=== PATIENT | female | born 1955 | race Two or more races ===

== ENCOUNTER 2018-03-25 21:21 | Emergency (ER) | payer MEDICARE, OTHER ==
[~2018-03-25] VITALS: Ht 149.9 cm; Wt 63.5 kg
[2018-03-25] MEDS: MAGNESIUM SULFATE 1GM/100ML 100 ML IV SCH ×2 (00:24→23:55)
[2018-03-25] MEDS ORDERED: NITROGLYCERIN 0.4 MG SL TAB SL ONE (21:45)
[2018-03-25] MEDS ORDERED: ASPirin-EC 325mg tab PO ONE (21:45)
[2018-03-25] MEDS ORDERED: cefTRIAXone 1GM/10ml IVPUSH 10 ML IV ONE (22:00)
[2018-03-25] MEDS ORDERED: IPRATROPIUM BROM 0.5 MG/2.5ML INH SOL NEB ONE (22:00)
[2018-03-25] MEDS ORDERED: ALBUTEROL SULF 2.5 MG/0.5ML(0.5%) NEB SOLN NEB ONE (22:00)
[2018-03-25] MEDS ORDERED: methylPREDNISolone SOD SUCC 125 MG/2 ML VL IV ONE (22:00)
[2018-03-25 22:02] LABS: Basophils # (auto) 0 uL; Basophils % (auto) 0.6 % (0.0-2.0); Eosinophils # (auto) 0.6 uL; Eosinophils % (auto) 7.4 % (0.0-7.0); Hematocrit 40.1 % (36.0-46.0); Hemoglobin 13.2 g/dL (12.2-16.2); Lymphocytes # (auto) 2.7 uL; Lymphocytes % (auto) 33.9 % (10.0-50.0); Mean Corpuscular Hemoglobin 31.1 pg (28.0-32.0); Mean Corpuscular Hgb Conc. 32.8 g/dL (32.0-36.0); Mean Corpuscular Volume 94.6 fL (80.0-100.0); Monocytes # (auto) 0.5 uL; Monocytes % (auto) 5.9 % (0.0-12.0); Neutrophils # (auto) 4.2 uL; Neutrophils % (auto) 52.2 % (37.0-80.0); Platelet Count (auto) 290 10^3/uL (140-450); Red Blood Cells 4.24 10^6/uL (4.0-5.20); Red Cell Distribution Width 13.5 % (11.8-14.3)
[2018-03-25 22:12] VITALS: BP 116/60
[2018-03-25 22:13] LABS: INR 0.91 (0.9-1.15); Partial Thromboplastin Time 26.1 sec (23.78-33.04); Prothrombin Time 9.8 sec (9.27-12.13)
[2018-03-25 22:18] LABS: Alanine Aminotransferase 27 U/L (13-56); Albumin 3.5 g/dL (3.4-5.0); Alkaline Phosphatase 125 U/L (45-117); Anion Gap 9 (5-15); Aspartate Aminotransferase 19 U/L (15-37); BUN/Creatinine Ratio 11.7; Bilirubin, Total 0.1 mg/dL (0.2-1.0); Blood Urea Nitrogen 11 mg/dL (7-18); Calcium 8.8 mg/dL (8.5-10.1); Carbon Dioxide 27 mmol/L (21-32); Chloride 105 mmol/L (98-107); GFR African American 77 mL/min; GFR Non-African American 64 mL/min; Glucose 134 mg/dL (74-106); Magnesium 2.4 mg/dL (1.6-2.6); Potassium 3.5 mmol/L (3.5-5.1); Sodium 141 mmol/L (136-145)
[2018-03-26] MEDS ORDERED: ALBUTEROL SULF 2.5 MG/0.5ML(0.5%) NEB SOLN NEB ONE
== END 2018-03-26 01:30 | disposition home or self-care (01) ==
LOC: EDBD 21:21 → ER 21:21
DX: J45.909 Unspecified asthma, uncomplicated (principal); J06.9 Acute upper respiratory infection, unspecified; F17.210 Nicotine dependence, cigarettes, uncomplicated
CPT/HCPCS: 36415; 71045; 80053; 83735; 83880; 84484; 85025; 85610; 85730; 93005; 94640; 96365; 96366; 96375; 99285; J2930; J3475

== ENCOUNTER 2020-05-08 12:26 | Inpatient (IN) | payer MEDICARE, MEDICAID ==
[~2020-05-08] VITALS: Ht 167.6 cm; Wt 65.5 kg
[2020-05-08] MEDS ORDERED: SODIUM CHLORIDE 0.9% 1,000 ML IVB ONE (13:47)
[2020-05-08] MEDS ORDERED: DOXYCYCLINE 100MG/250ML 250 ML IV ONE (14:00)
[2020-05-08] MEDS ORDERED: ZINC SULFATE 220mg CAP or TAB PO ONE (14:00)
[2020-05-08] MEDS ORDERED: ASCORBIC ACID 500 MG TAB PO ONE (14:00)
[2020-05-08] MEDS: ACETAMINOPHEN 500 MG TAB PO ONE (14:15)
[2020-05-08 14:35] LABS: Basophils # (auto) 0 10 ^3/uL (0-0.2); Basophils % (auto) 0.5 % (0.0-2.0); Eosinophils # (auto) 0 10 ^3/uL (0-0.8); Eosinophils % (auto) 0.6 % (0.0-7.0); Hematocrit 41.2 % (36.0-46.0); Hemoglobin 13.8 g/dL (12.2-16.2); Lymphocytes % (auto) 19.8 % (10.0-50.0); Mean Corpuscular Hemoglobin 31.5 pg (28.0-32.0); Mean Corpuscular Hgb Conc. 33.4 g/dL (32.0-36.0); Mean Corpuscular Volume 94.5 fL (80.0-100.0); Monocytes # (auto) 0.4 10 ^3/uL (0-1.3); Monocytes % (auto) 8.6 % (0.0-12.0); Neutrophils # (auto) 3.5 10 ^3/uL (1.6-8.6); Neutrophils % (auto) 70.5 % (37.0-80.0); Nucleated Red Blood Cells % 0.1 %; Platelet Count (auto) 218 10^3/uL (140-450); Red Blood Cells 4.36 10^6/uL (4.0-5.20); Red Cell Distribution Width 13.7 % (11.8-14.3)
[2020-05-08 14:52] LABS: INR 0.93 (0.9-1.15); Partial Thromboplastin Time 27.4 sec (23.0-31.2)
[2020-05-08 14:54] LABS: Urine Bacteria FEW /hpf (None Seen); Urine Blood Negative /uL (Negative); Urine Mucus FEW (None Seen); Urine Specific Gravity 1.015 (1.001-1.035); Urine WBC 5 /hpf (0 - 5)
[2020-05-08 15:16] LABS: Albumin 2.9 g/dL (3.4-5.0); Anion Gap 6 (5-15); BUN/Creatinine Ratio 8.8; Blood Urea Nitrogen 6 mg/dL (7-18); Calcium 8.1 mg/dL (8.5-10.1); Carbon Dioxide 27 mmol/L (21-32); Chloride 108 mmol/L (98-107); GFR African American 111 mL/min; GFR Non-African American 92 mL/min; Glucose 96 mg/dL (74-106); Potassium 3.4 mmol/L (3.5-5.1); Sodium 141 mmol/L (136-145)
[2020-05-08 15:30] LABS: Alanine Aminotransferase 47 U/L (13-56); Alkaline Phosphatase 117 U/L (45-117); Aspartate Aminotransferase 63 U/L (15-37); Bilirubin, Total 0.3 mg/dL (0.2-1.0); Total Protein 6.9 g/dL (6.4-8.2)
[2020-05-08] MEDS ORDERED: MORPHINE SULF INJ 2 MG/ML SYRINGE 1ML IV PRN ×3 (16:15→16:45)
[2020-05-08] MEDS ORDERED: NITROGLYCERIN 0.4 MG SL TAB SL PRN ×2 (16:15→16:45)
[2020-05-08] MEDS ORDERED: SODIUM CHLORIDE 0.9% 1,000 ML IV SCH (16:41)
[2020-05-08] MEDS ORDERED: ALUM & MAG HYDROX-SIMETH LIQ(MAALOX) 30 ML PO PRN (16:45)
[2020-05-08] MEDS ORDERED: ACETAMINOPHEN 500 MG TAB PO PRN (16:45)
[2020-05-08] MEDS ORDERED: ONDANSETRON HCL 4 MG/2 ML VIAL IV PRN (16:45)
[2020-05-08] MEDS ORDERED: ACETAMINOPHEN 325 MG TAB PO PRN (16:45)
[2020-05-08] MEDS ORDERED: FAMOTIDINE (10MG/ML) 2ML VL IV ONE (17:00)
[2020-05-08] MEDS ORDERED: POTASSIUM CHL 20 Meq TABLET PO ONE (17:00)
[2020-05-08] MEDS ORDERED: FUROSEMIDE 20 MG/2 ML VIAL IV ONE (17:00)
[2020-05-08] MEDS: FUROSEMIDE 20 MG/2 ML VIAL IV SCH (17:37)
--- NOTE | 2020-05-08 17:40 | NUR ---
patient arrived to [facility], patient alert and oriented x4, ambulatory. Patient uses 2L NC at this time, although while off of it patient saturates at 92%. Patient with even and unlabored respirations. patient oriented to room and unit. patient given call light and patient verbalized understanding of plan of care.
[2020-05-08 17:56] LABS: Cholesterol 163 mg/dL (< 200)
[2020-05-08 17:58] LABS: HDL Cholesterol 93 mg/dL (40-59); LDL Cholesterol 55 mg/dL (< 100); Triglycerides 159 mg/dL (< 150)
[2020-05-08 18:08] LABS: CRP High Sensitivity 5.34 mg/dL (< 0.3)
[2020-05-08 18:47] LABS: Alcohol, Urine < 3.0 mg/dL (0-10); Amphetamine Screen, Urine POSITIVE (NEGATIVE); Barbiturate Scree,Urine NEGATIVE (NEGATIVE); Benzodiazephine Screen, Urine NEGATIVE (NEGATIVE); Cannabinoid Screen, Urine NEGATIVE (NEGATIVE); Cocaine Screen, Urine NEGATIVE (NEGATIVE); Opiate Scree,Urine NEGATIVE (NEGATIVE); Phencyclidine Screen, Urine NEGATIVE (NEGATIVE)
--- NOTE | 2020-05-08 19:30 | NUR ---
Opening Shift Note Assumed care of patient, awake and alert x4. Patient denies pain or shortness of breath at this time. No sign/symptoms of distress noted at this time. Instructed on plan of care and encouraged patient to call for assistance, patient verbalized understanding. Bed is locked in lowest position, side rails x 2 are up, call light is within reach, and bed alarm is on.
[2020-05-08] MEDS: DOXYCYCLINE 100MG/250ML 250 ML IV SCH (20:59)
--- NOTE | 2020-05-08 21:07 | NUR ---
Oxygen Saturation Patient's oxygen saturation was noted at 85% on 2L/min NC. Oxygen titrated up to 6L/min NC, oxygen saturation increased and sustained at 91%. Patient denies shortness of breath at this time. No sign/symptoms of distress noted or verbalized at this time. Patient is currently on 6L/min NC, SPO2: 91% laying in bed with even and unlabored respirations. No sign/symptoms of distress noted at this time.
[2020-05-08] MEDS: HYDROcodone-ACET 5/325MG TAB PO PRN (21:10)
--- NOTE | 2020-05-08 22:25 | NUR ---
IV Insertion IV access obtained, via clean sterile technique by inserting 22 gauge catheter at right forearm after 1 attempt. IV secured properly. No trauma to site. Patient tolerated well.
[2020-05-08 22:29] VITALS: BP 110/65
--- NOTE | 2020-05-08 22:30 | NUR ---
IV Removal IV to left AC DC'd due to leaking. IV DC'd with clean sterile technique, catheter fully intact. Pressure dressing applied to site. Patient tolerated well.
[2020-05-08] MEDS: BUDESONIDE (INHALATION) 180 MCG IH IN SCH (23:18)
[2020-05-08] MEDS: ALBUTEROL SULF HFA 90MCG INH 200DOSE IN SCH (23:18)
--- NOTE | 2020-05-08 23:30 | NUR ---
Temperature Temperature is 99.9. Cooling measures initiated. Patient denies chills at this time.
[2020-05-09] MEDS: LORazepam 0.5 MG TAB PO PRN ×2 (00:25→15:48)
--- NOTE | 2020-05-09 00:30 | NUR ---
Temperature Reassessment Temperature is 98.1. Patient denies chills at this time.
[2020-05-09 02:45] VITALS: BP 110/65
[2020-05-09] MEDS: FUROSEMIDE 20 MG/2 ML VIAL IV SCH ×2 (06:04→17:33)
[2020-05-09] MEDS: HYDROcodone-ACET 5/325MG TAB PO PRN ×2 (06:23→20:18)
[2020-05-09 06:28] LABS: Basophils # (auto) 0 10 ^3/uL (0-0.2); Basophils % (auto) 1.2 % (0.0-2.0); Eosinophils # (auto) 0 10 ^3/uL (0-0.8); Eosinophils % (auto) 0.5 % (0.0-7.0); Hematocrit 40.4 % (36.0-46.0); Hemoglobin 13.3 g/dL (12.2-16.2); Lymphocytes # (auto) 1.1 10 ^3/uL (0.4-5.4); Lymphocytes % (auto) 29.9 % (10.0-50.0); Mean Corpuscular Hemoglobin 31.4 pg (28.0-32.0); Mean Corpuscular Volume 95.2 fL (80.0-100.0); Monocytes # (auto) 0.4 10 ^3/uL (0-1.3); Monocytes % (auto) 10.7 % (0.0-12.0); Neutrophils # (auto) 2.2 10 ^3/uL (1.6-8.6); Neutrophils % (auto) 57.7 % (37.0-80.0); Nucleated Red Blood Cells % 0.1 %; Platelet Count (auto) 197 10^3/uL (140-450); Red Blood Cells 4.24 10^6/uL (4.0-5.20); Red Cell Distribution Width 13.3 % (11.8-14.3); White Blood Cell 3.8 10^3/uL (4.4-10.8)
[2020-05-09 06:43] LABS: Chloride 108 mmol/L (98-107); Potassium 4.1 mmol/L (3.5-5.1); Sodium 138 mmol/L (136-145)
[2020-05-09 07:03] LABS: Alanine Aminotransferase 56 U/L (13-56); Albumin 2.7 g/dL (3.4-5.0); Alkaline Phosphatase 142 U/L (45-117); Anion Gap 3 (5-15); Aspartate Aminotransferase 73 U/L (15-37); BUN/Creatinine Ratio 8.8; Bilirubin, Total 0.5 mg/dL (0.2-1.0); Blood Urea Nitrogen 6 mg/dL (7-18); CRP High Sensitivity 6.27 mg/dL (< 0.3); Carbon Dioxide 27 mmol/L (21-32); GFR African American 111 mL/min; GFR Non-African American 92 mL/min; Glucose 100 mg/dL (74-106); Lactate Dehydrogenase 310 U/L (84-246); Phosphorus 2.3 mg/dL (2.5-4.90); Total Protein 6.5 g/dL (6.4-8.2)
[2020-05-09] MEDS: ALBUTEROL SULF HFA 90MCG INH 200DOSE IN SCH ×3 (07:03→22:14)
[2020-05-09] MEDS: BUDESONIDE (INHALATION) 180 MCG IH IN SCH ×2 (07:03→22:14)
--- NOTE | 2020-05-09 08:00 | NUR ---
Instructed patient to lay "prone", discussed with patient that laying on her stomach is helpful in helping the lungs oxygenate, patient verbalized understanding, patient instructed on how to use incentive spirometer, patient verbalized understanding of instructions.
[2020-05-09 09:00] VITALS: BP 110/67
[2020-05-09] MEDS: DOXYCYCLINE 100MG/250ML 250 ML IV SCH (09:32)
[2020-05-09] MEDS: FAMOTIDINE (10MG/ML) 2ML VL IV SCH (09:32)
[2020-05-09] MEDS: ZINC SULFATE 220mg CAP or TAB PO SCH (09:33)
[2020-05-09] MEDS: POTASSIUM CHL 20 Meq TABLET PO SCH (09:33)
[2020-05-09] MEDS: ENOXAPARIN SOD 40 MG/0.4 ML SYRINGE SC SCH (09:33)
[2020-05-09] MEDS: ASCORBIC ACID 1,000 MG TAB PO SCH (09:33)
[2020-05-09] MEDS: CHOLECALCIFEROL (VITD3) 2,000 UNIT CAP PO SCH (09:33)
[2020-05-09] MEDS ORDERED: DexAMETHasone SOD PHOS 10MG/1ML VIAL INJ IV SCH (10:00)
[2020-05-09] MEDS ORDERED: cefTRIAXone 1GM/50ML D5W 50 ML IV ONE (10:00)
[2020-05-09] MEDS ORDERED: levoFLOXacin 750MG 150 ML IV ONE (10:15)
--- NOTE | 2020-05-09 10:15 | NUR ---
paged Dr soria regarding decadron on back order, per pharmacy there is none in building.
--- NOTE | 2020-05-09 10:32 | NUR ---
Per Dr Butt change decardon IV to Po same dose.
[2020-05-09] MEDS: DexAMETHasone 4 MG TAB PO SCH (11:05)
[2020-05-09 12:40] VITALS: BP 99/58
--- NOTE | 2020-05-09 15:05 | NUR ---
instructed patient to lay on abdomen, as much as possible to help with oxygenation, patient also reminded to use incentive spirometer at least 10 times an hour as tolerated.
--- NOTE | 2020-05-09 15:45 | NUR ---
Patient complained of feeling anxious, patient states "she can't close her eyes they just keep opening", at this time patient is on the cell phones talking to someone, patient requested anxiety medicine, I told patient to also turn off her lights, and turn off her phone so she could rest her mind, that the light in the phone can also keep her awake. Patient verbalized understanding, will give patient anxiety medication as well per her request.
[2020-05-09 16:57] VITALS: BP 99/59
[2020-05-09 18:04] VITALS: BP 112/78
[2020-05-09] MEDS ORDERED: cefTRIAXone 1GM/50ML D5W 50 ML IV SCH (21:00)
[2020-05-09 22:00] VITALS: BP 121/76
--- NOTE | 2020-05-09 22:15 | NUR ---
RT NOTE PT WAS SEEN BY RT FOR MDI TX. PT TOLERATES ALBUTEROL WELL VIA SPACER. PT RINSED MOUTH POST PULMICORT INHALER. PT STATES SHE THINKS SHE HAS A FEVER. WILL LET RN KNOW. CONT ORDERED Addendum: 05/09/20 at 2216 by Henna Luis RT Amended: Links added.
[2020-05-10] MEDS: HYDROcodone-ACET 5/325MG TAB PO PRN ×2 (03:55→12:27)
[2020-05-10 05:48] VITALS: BP 107/68
[2020-05-10] MEDS: FUROSEMIDE 20 MG/2 ML VIAL IV SCH ×2 (06:22→18:08)
[2020-05-10] MEDS: ALBUTEROL SULF HFA 90MCG INH 200DOSE IN SCH ×3 (07:19→22:15)
[2020-05-10] MEDS: BUDESONIDE (INHALATION) 180 MCG IH IN SCH ×2 (07:19→22:15)
[2020-05-10 09:00] VITALS: BP 93/57
[2020-05-10] MEDS: POTASSIUM CHL 20 Meq TABLET PO SCH (09:22)
[2020-05-10] MEDS: ENOXAPARIN SOD 40 MG/0.4 ML SYRINGE SC SCH (09:22)
[2020-05-10] MEDS: ZINC SULFATE 220mg CAP or TAB PO SCH (09:22)
[2020-05-10] MEDS: FAMOTIDINE (10MG/ML) 2ML VL IV SCH (09:22)
[2020-05-10] MEDS: levoFLOXacin 750MG 150 ML IV SCH (11:56)
[2020-05-10] MEDS: CHOLECALCIFEROL (VITD3) 2,000 UNIT CAP PO SCH (11:56)
[2020-05-10] MEDS: ASCORBIC ACID 1,000 MG TAB PO SCH (12:26)
[2020-05-10] MEDS: DexAMETHasone 4 MG TAB PO SCH (12:27)
[2020-05-10 12:54] VITALS: BP 110/72
[2020-05-10 17:00] VITALS: BP 99/62
--- NOTE | 2020-05-10 18:57 | NUR ---
ENDORSED CARE TO NIGHT RN.
--- NOTE | 2020-05-10 19:20 | NUR ---
Opening Shift Note Received report from taco [employer]ner [id number].Assumed care of patient, awake and alert. No S/S of distress/SOB or pain. Instructed on POC and to call for assist PRN, will continue to monitor for changes Q1hr and PRN. bed in low position and call light within reach.
[2020-05-10 22:00] VITALS: BP 104/36
[2020-05-11] MEDS: LORazepam 0.5 MG TAB PO PRN (00:24)
[2020-05-11] MEDS: HYDROcodone-ACET 5/325MG TAB PO PRN (03:39)
--- NOTE | 2020-05-11 03:39 | NUR ---
pain patient reports pain 5/10 to her back. patient medicated per md order
--- NOTE | 2020-05-11 04:39 | NUR ---
pain 0/10 pain
[2020-05-11 05:00] VITALS: BP 98/56
[2020-05-11] MEDS: FUROSEMIDE 20 MG/2 ML VIAL IV SCH ×2 (05:29→18:00)
[2020-05-11] MEDS: BUDESONIDE (INHALATION) 180 MCG IH IN SCH (06:56)
[2020-05-11] MEDS: ALBUTEROL SULF HFA 90MCG INH 200DOSE IN SCH ×2 (06:56→14:20)
--- NOTE | 2020-05-11 07:16 | NUR ---
endorsed care to dayshift rn patient denies sob distress or pain. iv is intact and patent. fall precautions in place.
--- NOTE | 2020-05-11 08:00 | NUR ---
Opening Shift Note Assumed care of patient, awake and alert x4. Patient denies pain or shortness of breath at this time. No sign/symptoms of distress noted at this time. Patient slept well.Instructed on plan of care and encouraged patient to call for assistance, patient verbalized understanding. Bed is locked in lowest position, side rails x 2 are up, call light is within reach, and bed alarm is on.
[2020-05-11 09:00] VITALS: BP 101/54
[2020-05-11] MEDS: DexAMETHasone 4 MG TAB PO SCH (09:56)
[2020-05-11] MEDS: FAMOTIDINE (10MG/ML) 2ML VL IV SCH (09:56)
[2020-05-11] MEDS: POTASSIUM CHL 20 Meq TABLET PO SCH (09:57)
[2020-05-11] MEDS: ASCORBIC ACID 1,000 MG TAB PO SCH (09:57)
[2020-05-11] MEDS: ENOXAPARIN SOD 40 MG/0.4 ML SYRINGE SC SCH (09:58)
[2020-05-11] MEDS: CHOLECALCIFEROL (VITD3) 2,000 UNIT CAP PO SCH (09:59)
[2020-05-11] MEDS: levoFLOXacin 750MG 150 ML IV SCH (09:59)
[2020-05-11] MEDS: ZINC SULFATE 220mg CAP or TAB PO SCH (10:00)
[2020-05-11 13:00] VITALS: BP 116/63
[2020-05-11] MEDS ORDERED: CHOL1CAP47 PO (13:17)
[2020-05-11] MEDS ORDERED: ALBUAER3 IN (13:17)
[2020-05-11] MEDS ORDERED: ASCO10003 PO (13:17)
[2020-05-11] MEDS ORDERED: LEVO750T8 PO (13:31)
[2020-05-11] MEDS ORDERED: DEX4T PO (13:32)
[2020-05-11] MEDS ORDERED: PANT40TA2 PO (13:33)
--- NOTE | 2020-05-11 15:50 | NUR ---
ss consult Per ss consult home 02 2l/min continuously for 2 weeks and then to be reassessed by PCP. Sweta portillo. order has been sent to [facility]. Waiting on reply back now. Addendum: 05/11/20 at 1551 by Lisette Frederick Amended: Links added.
[2020-05-11 17:00] VITALS: BP 115/64
--- NOTE | 2020-05-11 17:02 | NUR ---
re-assessment Per Marko at [facility] oxygen will be delivered to [facility] by 530pm and concentrator to home. Serge FINK has been notified. Addendum: 05/11/20 at 1704 by Lisette Frederick SS Amended: Links added.
--- NOTE | 2020-05-11 17:30 | NUR ---
OXYGEN TANK DELIVERED TO HOSPITAL AND NOW AT BEDSIDE WITH PATIENT, EDUCATED PAITENT ON USE AND SAFETY.
--- NOTE | 2020-05-11 17:30 | NUR ---
MEDICATIONS PICKED UP FROM PHARMACY AND LEFT BEDSIDE WITH HIRAM
--- NOTE | 2020-05-11 19:06 | NUR ---
DISCHARGE COMPLETED, EDUCATION PROVIDED AND SIGNED BY PATIENT. IV D/C TIP INTACT, PATIENT TOLERATED WELL, PRESSURE DRESSING APPLIED. TELE REMOVED AND CLEANED AND RETURNED TO ICU.PATIENTS DAUGHTER WILL BE HERE BETWEEN 8-830PM.
--- NOTE | 2020-05-11 19:09 | NUR ---
ENDORSED CARE TO NIGHT RN
--- NOTE | 2020-05-11 19:20 | NUR ---
Opening Shift Note Assumed care of patient, awake and alert. No S/S of distress/SOB or pain. Patient has medications at bedside. patient instructed on how to use oxygen patient verbalized understanding. Instructed on POC and to call for assist PRN, will continue to monitor for changes Q1hr and PRN. bed in low position and call light within reach per patient daughter will be here at 0800pm -0830pm. Per patient oxygen delivered at home as well.
[2020-05-11 20:00] VITALS: BP 120/63
[2020-05-11 20:13] VITALS: BP 115/64
--- NOTE | 2020-05-11 20:59 | NUR ---
patient discharge taken down with evs and security. patient daughter picking patient up. patient belongings with patient. patient verbalized understanding on how to use oxygen and understanding of discharge paperwork and medications prescribed. patient oxygen concentrator delivered to home. patient denies sob distress or pain upon discharge.
== END 2020-05-11 20:59 | disposition home or self-care (01) | DRG 720 ==
LOC: EDBD 12:26 → ER 12:26 → TELE 12:27 → TELE-EAST 17:25 → TELE-E-ADS 23:31
PROVIDERS: ADMIT Hospitalist; ATTEND Internal Medicine Nephrology
DX: A41.89 Other specified sepsis (principal); U07.1 COVID-19; J12.89 Other viral pneumonia; J96.21 Acute and chronic respiratory failure with hypoxia; R65.20 Severe sepsis without septic shock; N39.0 Urinary tract infection, site not specified; I11.0 Hypertensive heart disease with heart failure; E87.6 Hypokalemia; J44.0 Chronic obstructive pulmonary disease with (acute) lower respiratory infection; J44.1 Chronic obstructive pulmonary disease with (acute) exacerbation; E43 Unspecified severe protein-calorie malnutrition; F17.200 Nicotine dependence, unspecified, uncomplicated; I50.9 Heart failure, unspecified; J15.9 Unspecified bacterial pneumonia; R74.0 Nonspecific elevation of levels of transaminase and lactic acid dehydrogenase [LDH]; R73.9 Hyperglycemia, unspecified; Z82.61 Family history of arthritis; Z88.2 Allergy status to sulfonamides; Z88.8 Allergy status to other drugs, medicaments and biological substances; Z88.0 Allergy status to penicillin
CPT/HCPCS: 36415; 71045; 80053; 80061; 80307; 81001; 82728; 83036; 83605; 83615; 83735; 83880; 84100; 84443; 84484; 85025; 85379; 85610; 85652; 85730; 86141; 87040; 87070; 87086; 87804; 87880; 93005; 94640; 96365; G0378; J1956; J2405; J3490

== ENCOUNTER 2022-06-12 15:01 | Emergency (ER) | payer MEDICARE, MEDICAID ==
[~2022-06-12] VITALS: Ht 149.9 cm; Wt 150.0 kg
[~2022-06-12 15:01] MED LIST: ALBUAER3 IN; ASCO10003 PO; CHOL1CAP47 PO; DEX4T PO; LEVO750T8 PO; PANT40TA2 PO
[2022-06-12 17:15] LABS: Basophils # (auto) 0.1 10 ^3/uL (0-0.2); Basophils % (auto) 1.5 % (0.0-2.0); Eosinophils # (auto) 0.9 10 ^3/uL (0-0.8); Eosinophils % (auto) 14.1 % (0.0-7.0); Hemoglobin 12.9 g/dL (12.2-16.2); Lymphocytes # (auto) 1.3 10 ^3/uL (0.4-5.4); Lymphocytes % (auto) 20.8 % (10.0-50.0); Mean Corpuscular Volume 93.9 fL (80.0-100.0); Monocytes # (auto) 0.6 10 ^3/uL (0-1.3); Monocytes % (auto) 9.4 % (0.0-12.0); Neutrophils # (auto) 3.3 10 ^3/uL (1.6-8.6); Neutrophils % (auto) 54.2 % (37.0-80.0); Nucleated Red Blood Cells % 0.1 %; Red Blood Cells 4.15 10^6/uL (4.0-5.20); Red Cell Distribution Width 13.8 % (11.8-14.3)
[2022-06-12 17:36] LABS: Calcium 8.4 mg/dL (8.5-10.1); Potassium 3.2 mmol/L (3.5-5.1)
[2022-06-12 17:40] LABS: BUN/Creatinine Ratio 11.3; Bilirubin, Total 0.2 mg/dL (0.2-1.0); Total Protein 6.6 g/dL (6.4-8.2)
[2022-06-12] MEDS ORDERED: HYDROcodone-ACET 10/325MG TAB PO ONE (20:15)
[2022-06-12 22:00] VITALS: BP 112/52
[2022-06-12] MEDS ORDERED: POTASSIUM CHL 20 Meq TABLET PO ONE (22:00)
== END 2022-06-12 22:53 | disposition home or self-care (01) ==
LOC: EDBD 15:01 → ER 15:01
DX: R07.89 Other chest pain (principal); Z53.29 Procedure and treatment not carried out because of patient's decision for other reasons; Z20.822 Contact with and (suspected) exposure to COVID-19
CPT/HCPCS: 36415; 71045; 80053; 84484; 85025; 93005

== ENCOUNTER 2022-07-29 05:28 | Inpatient (IN) | payer MEDICARE, MEDICAID ==
[~2022-07-29] VITALS: Ht 149.9 cm; Wt 74.8 kg
[2022-07-29] MEDS ORDERED: ALBUTEROL SULF 2.5 MG/0.5ML(0.5%) NEB SOLN NEB ONE ×2 (07:00→12:00)
[2022-07-29] MEDS ORDERED: SODIUM CHLORIDE 0.9% 1,000 ML IV ONE (07:00)
[2022-07-29] MEDS ORDERED: methylPREDNISolone SOD SUCC 125 MG/2 ML VL IV ONE (07:00)
[2022-07-29] MEDS ORDERED: IPRATROPIUM BROM 0.5 MG/2.5ML INH SOL NEB ONE ×2 (07:00→12:00)
[2022-07-29 07:38] LABS: Hematocrit 39.5 % (36.0-46.0); Mean Corpuscular Hemoglobin 30.9 pg (28.0-32.0); Mean Corpuscular Hgb Conc. 32.9 g/dL (32.0-36.0); Mean Corpuscular Volume 93.9 fL (80.0-100.0); White Blood Cell 6.4 10^3/uL (4.4-10.8)
[2022-07-29 07:42] LABS: Band Neutrophils % (manual) 0; Basophils % (manual) 0 (0.0-2.0); Blast Cells 0; Metamyelocytes % 0; Myelocytes % 0; Promyelocytes % 0; Reactive Lymphocytes 0
[2022-07-29 07:50] LABS: Albumin 3.3 g/dL (3.4-5.0); BUN/Creatinine Ratio 16.2; Calcium 8.8 mg/dL (8.5-10.1); Potassium 3.8 mmol/L (3.5-5.1)
[2022-07-29 07:53] LABS: Bilirubin, Total 0.2 mg/dL (0.2-1.0); Total Protein 6.4 g/dL (6.4-8.2)
[2022-07-29 08:09] LABS: Lymphocytes % (manual) 23 (10.0-50.0); Monocytes % (manual) 5 (0-12)
[2022-07-29 08:10] LABS: Eosinophils % (manual) 27 (0-7)
[2022-07-29] MEDS ORDERED: cefTRIAXone 1GM/50ML D5W 50 ML IV ONE (12:00)
[2022-07-29] MEDS ORDERED: NITROGLYCERIN 0.4 MG SL TAB SL PRN (14:15)
[2022-07-29] MEDS ORDERED: MORPHINE SULFATE INJ 2 MG/ml SYRG IV PRN (14:15)
[2022-07-29] MEDS ORDERED: ACETAMINOPHEN 325 MG TAB PO PRN ×2 (14:15→15:30)
[2022-07-29] MEDS ORDERED: ONDANSETRON HCL 4 MG/2 ML VIAL IV PRN (14:15)
[2022-07-29] MEDS ORDERED: PANTOPRAZOLE 40 MG/10 ML VIAL INJ IV ONE (14:15)
[2022-07-29] MEDS ORDERED: DOCUSATE SOD 100 MG CAP PO PRN (15:30)
[2022-07-29 15:59] LABS: Cholesterol 188 mg/dL (< 200); HDL Cholesterol 86 mg/dL (40-59); LDL Cholesterol 86 mg/dL (< 100); Triglycerides 154 mg/dL (< 150)
[2022-07-29] MEDS: HYDROcodone-ACET 5/325MG TAB PO PRN (16:11)
[2022-07-29 16:30] VITALS: BP 121/65
[2022-07-29] MEDS: SODIUM CHLORIDE 0.9% 1,000 ML IV ONE ×2 (19:39→19:46)
[2022-07-29] MEDS: ALBUTEROL SULF 2.5 MG/0.5ML(0.5%) NEB SOLN NEB SCH (19:42)
[2022-07-29] MEDS: IPRATROPIUM BROM 0.5 MG/2.5ML INH SOL NEB SCH (19:42)
[2022-07-29] MEDS: methylPREDNISolone SOD SUCC 125 MG/2 ML VL IV SCH (22:04)
[2022-07-30] MEDS: IPRATROPIUM BROM 0.5 MG/2.5ML INH SOL NEB SCH ×6 (00:11→23:32)
[2022-07-30] MEDS: ALBUTEROL SULF 2.5 MG/0.5ML(0.5%) NEB SOLN NEB SCH ×6 (00:11→23:32)
[2022-07-30] MEDS: HYDROcodone-ACET 5/325MG TAB PO PRN ×2 (02:11→17:46)
[2022-07-30] MEDS: ONDANSETRON HCL 4 MG/2 ML VIAL IV PRN (05:00)
[2022-07-30] MEDS: MORPHINE SULFATE INJ 2 MG/ml SYRG IV PRN ×2 (05:01→22:44)
[2022-07-30 05:55] LABS: Basophils # (auto) 0 10 ^3/uL (0-0.2); Basophils % (auto) 0.4 % (0.0-2.0); Eosinophils # (auto) 0 10 ^3/uL (0-0.8); Hematocrit 37.7 % (36.0-46.0); Hemoglobin 12.3 g/dL (12.2-16.2); Lymphocytes # (auto) 0.7 10 ^3/uL (0.4-5.4); Lymphocytes % (auto) 5.5 % (10.0-50.0); Mean Corpuscular Hemoglobin 30.5 pg (28.0-32.0); Mean Corpuscular Hgb Conc. 32.6 g/dL (32.0-36.0); Mean Corpuscular Volume 93.6 fL (80.0-100.0); Monocytes # (auto) 0.2 10 ^3/uL (0-1.3); Monocytes % (auto) 1.7 % (0.0-12.0); Neutrophils # (auto) 11.5 10 ^3/uL (1.6-8.6); Neutrophils % (auto) 92.4 % (37.0-80.0); Red Blood Cells 4.03 10^6/uL (4.0-5.20); Red Cell Distribution Width 13.1 % (11.8-14.3); White Blood Cell 12.5 10^3/uL (4.4-10.8)
[2022-07-30 06:01] LABS: Calcium 8.3 mg/dL (8.5-10.1); Potassium 3.9 mmol/L (3.5-5.1)
[2022-07-30 06:09] LABS: Bilirubin, Total 0.2 mg/dL (0.2-1.0); Total Protein 6.5 g/dL (6.4-8.2)
[2022-07-30 06:28] LABS: BUN/Creatinine Ratio 17.7
[2022-07-30 07:45] LABS: Urine Bacteria NONE SEEN /hpf (None Seen); Urine Blood Negative /uL (Negative); Urine Mucus FEW (None Seen); Urine Specific Gravity 1.032 (1.001-1.035); Urine WBC <1 /hpf (0 - 5)
[2022-07-30] MEDS: ENOXAPARIN SOD 40 MG/0.4 ML SYRINGE SC SCH (09:34)
[2022-07-30] MEDS: PANTOPRAZOLE 40 MG/10 ML VIAL INJ IV SCH (09:34)
[2022-07-30] MEDS: methylPREDNISolone SOD SUCC 125 MG/2 ML VL IV SCH ×2 (09:34→22:22)
[2022-07-30] MEDS: cefTRIAXone 1GM/50ML D5W 50 ML IV SCH (09:34)
[2022-07-30] MEDS ORDERED: ENOXAPARIN SOD 40 MG/0.4 ML SYRINGE SC SCH (10:00)
[2022-07-30] MEDS ORDERED: SODIUM CHLORIDE 0.9% 1,000 ML IV ONE (13:45)
[2022-07-30] MEDS ORDERED: MAGNESIUM SULFATE 1GM/100ML 100 ML IV ONE (14:00)
[2022-07-30 17:00] VITALS: BP 125/69
[2022-07-30 20:00] VITALS: BP 116/60
[2022-07-30 21:44] VITALS: BP 116/60
[2022-07-30] MEDS: MONTELUKAST SODIUM 10 MG TAB PO SCH (22:22)
[2022-07-30] MEDS: BUDESONIDE (INHALATION) 0.5 MG/2 ML NEB NEB SCH (23:32)
[2022-07-31] MEDS: ALBUTEROL SULF 2.5 MG/0.5ML(0.5%) NEB SOLN NEB SCH ×6 (03:18→22:21)
[2022-07-31] MEDS: IPRATROPIUM BROM 0.5 MG/2.5ML INH SOL NEB SCH ×6 (03:19→22:21)
[2022-07-31] MEDS: MORPHINE SULFATE INJ 2 MG/ml SYRG IV PRN ×2 (03:45→23:33)
[2022-07-31 05:00] VITALS: BP 129/65
[2022-07-31 08:30] VITALS: BP 121/62
[2022-07-31 09:00] VITALS: BP 121/62
[2022-07-31] MEDS: cefTRIAXone 1GM/50ML D5W 50 ML IV SCH (09:30)
[2022-07-31] MEDS: PANTOPRAZOLE 40 MG/10 ML VIAL INJ IV SCH (09:30)
[2022-07-31] MEDS: HYDROcodone-ACET 5/325MG TAB PO PRN ×2 (09:31→20:39)
[2022-07-31] MEDS: LORATADINE 10 MG TAB PO SCH (09:31)
[2022-07-31] MEDS: ENOXAPARIN SOD 40 MG/0.4 ML SYRINGE SC SCH (09:31)
[2022-07-31] MEDS: methylPREDNISolone SOD SUCC 125 MG/2 ML VL IV SCH ×2 (09:33→21:36)
[2022-07-31] MEDS: ONDANSETRON HCL 4 MG/2 ML VIAL IV PRN (09:33)
[2022-07-31] MEDS ORDERED: FUROSEMIDE 20 MG/2 ML VIAL IV ONE (10:00)
[2022-07-31] MEDS: BUDESONIDE (INHALATION) 0.5 MG/2 ML NEB NEB SCH ×2 (10:16→19:33)
[2022-07-31 12:00] VITALS: BP 123/60
[2022-07-31] MEDS ORDERED: guaiFENesin-DM 100/10mg/5ml SYR PO PRN (12:45)
[2022-07-31 17:00] VITALS: BP 105/44
[2022-07-31] MEDS: MONTELUKAST SODIUM 10 MG TAB PO SCH (21:37)
[2022-07-31 21:57] VITALS: BP 111/61
[2022-08-01] MEDS: IPRATROPIUM BROM 0.5 MG/2.5ML INH SOL NEB SCH ×6 (02:31→22:22)
[2022-08-01] MEDS: ALBUTEROL SULF 2.5 MG/0.5ML(0.5%) NEB SOLN NEB SCH ×6 (02:31→22:22)
[2022-08-01 05:00] VITALS: BP 129/64
[2022-08-01 07:13] LABS: Basophils # (auto) 0 10 ^3/uL (0-0.2); Basophils % (auto) 0.1 % (0.0-2.0); Eosinophils # (auto) 0 10 ^3/uL (0-0.8); Hematocrit 38.2 % (36.0-46.0); Hemoglobin 12.6 g/dL (12.2-16.2); Lymphocytes # (auto) 0.7 10 ^3/uL (0.4-5.4); Lymphocytes % (auto) 6.1 % (10.0-50.0); Mean Corpuscular Hemoglobin 31.1 pg (28.0-32.0); Mean Corpuscular Volume 94.2 fL (80.0-100.0); Monocytes # (auto) 0.3 10 ^3/uL (0-1.3); Monocytes % (auto) 2.4 % (0.0-12.0); Neutrophils # (auto) 9.9 10 ^3/uL (1.6-8.6); Neutrophils % (auto) 91.4 % (37.0-80.0); Red Blood Cells 4.05 10^6/uL (4.0-5.20); Red Cell Distribution Width 13.4 % (11.8-14.3); White Blood Cell 10.8 10^3/uL (4.4-10.8)
[2022-08-01 07:14] LABS: Calcium 8.4 mg/dL (8.5-10.1); Potassium 3.9 mmol/L (3.5-5.1)
[2022-08-01 08:00] VITALS: BP 138/80
[2022-08-01] MEDS: cefTRIAXone 1GM/50ML D5W 50 ML IV SCH (08:26)
[2022-08-01] MEDS: BUDESONIDE (INHALATION) 0.5 MG/2 ML NEB NEB SCH ×2 (09:22→19:04)
[2022-08-01] MEDS: methylPREDNISolone SOD SUCC 125 MG/2 ML VL IV SCH ×3 (10:22→23:32)
[2022-08-01] MEDS: LORATADINE 10 MG TAB PO SCH (10:22)
[2022-08-01] MEDS: ENOXAPARIN SOD 40 MG/0.4 ML SYRINGE SC SCH (10:22)
[2022-08-01 12:00] VITALS: BP_SYST 138; BP_SYST 139; BP_DIAS 71; BP_DIAS 93
[2022-08-01 16:00] VITALS: BP 134/78
[2022-08-01] MEDS: HYDROcodone-ACET 5/325MG TAB PO PRN (17:43)
[2022-08-01] MEDS: MONTELUKAST SODIUM 10 MG TAB PO SCH (21:40)
[2022-08-01 22:00] VITALS: BP 117/50
[2022-08-02] MEDS: ALBUTEROL SULF 2.5 MG/0.5ML(0.5%) NEB SOLN NEB SCH ×5 (01:33→22:40)
[2022-08-02] MEDS: IPRATROPIUM BROM 0.5 MG/2.5ML INH SOL NEB SCH ×5 (01:33→22:40)
[2022-08-02 05:00] VITALS: BP 140/74
[2022-08-02] MEDS: MORPHINE SULFATE INJ 2 MG/ml SYRG IV PRN (05:10)
[2022-08-02] MEDS: methylPREDNISolone SOD SUCC 125 MG/2 ML VL IV SCH ×3 (06:44→21:58)
[2022-08-02] MEDS: BUDESONIDE (INHALATION) 0.5 MG/2 ML NEB NEB SCH ×2 (07:21→22:40)
[2022-08-02 08:45] VITALS: BP 116/68
[2022-08-02] MEDS: ENOXAPARIN SOD 40 MG/0.4 ML SYRINGE SC SCH (09:33)
[2022-08-02] MEDS: LORATADINE 10 MG TAB PO SCH (09:33)
[2022-08-02] MEDS: cefTRIAXone 1GM/50ML D5W 50 ML IV SCH (09:33)
[2022-08-02 12:55] VITALS: BP 132/66
[2022-08-02 16:41] VITALS: BP 143/77
[2022-08-02] MEDS: HYDROcodone-ACET 5/325MG TAB PO PRN (20:51)
[2022-08-02] MEDS: MONTELUKAST SODIUM 10 MG TAB PO SCH (21:58)
[2022-08-02 22:00] VITALS: BP 149/71
[2022-08-03] MEDS: IPRATROPIUM BROM 0.5 MG/2.5ML INH SOL NEB SCH ×6 (02:21→22:22)
[2022-08-03] MEDS: ALBUTEROL SULF 2.5 MG/0.5ML(0.5%) NEB SOLN NEB SCH ×6 (02:21→22:22)
[2022-08-03] MEDS: MORPHINE SULFATE INJ 2 MG/ml SYRG IV PRN (03:08)
[2022-08-03 05:00] VITALS: BP 146/69
[2022-08-03] MEDS: methylPREDNISolone SOD SUCC 125 MG/2 ML VL IV SCH ×3 (05:36→21:45)
[2022-08-03] MEDS: BUDESONIDE (INHALATION) 0.5 MG/2 ML NEB NEB SCH ×2 (07:32→22:22)
[2022-08-03 08:00] VITALS: BP 114/58
[2022-08-03 09:00] VITALS: BP 137/72
[2022-08-03] MEDS: cefTRIAXone 1GM/50ML D5W 50 ML IV SCH (09:19)
[2022-08-03] MEDS: LORATADINE 10 MG TAB PO SCH (09:19)
[2022-08-03] MEDS: ENOXAPARIN SOD 40 MG/0.4 ML SYRINGE SC SCH (09:20)
[2022-08-03] MEDS ORDERED: AZITTAB PO (09:45)
[2022-08-03] MEDS ORDERED: PRED20TA2 PO (09:45)
[2022-08-03] MEDS ORDERED: MONT5CHW23 PO (09:45)
[2022-08-03] MEDS ORDERED: BUDE0.5S IN (09:45)
[2022-08-03 13:00] VITALS: BP 141/74
[2022-08-03 17:00] VITALS: BP 142/71
[2022-08-03] MEDS: HYDROcodone-ACET 5/325MG TAB PO PRN (19:51)
[2022-08-03] MEDS: MONTELUKAST SODIUM 10 MG TAB PO SCH (21:46)
[2022-08-03 22:00] VITALS: BP 117/63
[2022-08-04] MEDS: ALBUTEROL SULF 2.5 MG/0.5ML(0.5%) NEB SOLN NEB SCH ×3 (02:26→10:36)
[2022-08-04] MEDS: IPRATROPIUM BROM 0.5 MG/2.5ML INH SOL NEB SCH ×3 (02:26→10:37)
[2022-08-04 05:00] VITALS: BP 128/76
[2022-08-04] MEDS: methylPREDNISolone SOD SUCC 125 MG/2 ML VL IV SCH (05:46)
[2022-08-04] MEDS: BUDESONIDE (INHALATION) 0.5 MG/2 ML NEB NEB SCH (06:46)
[2022-08-04] MEDS: cefTRIAXone 1GM/50ML D5W 50 ML IV SCH (08:54)
[2022-08-04 09:00] VITALS: BP 132/61
[2022-08-04] MEDS: LORATADINE 10 MG TAB PO SCH (10:09)
[2022-08-04] MEDS: ENOXAPARIN SOD 40 MG/0.4 ML SYRINGE SC SCH (10:10)
[2022-08-04 10:52] VITALS: BP 132/61
[2022-08-04] MEDS: HYDROcodone-ACET 5/325MG TAB PO PRN (10:59)
[2022-08-04 11:27] VITALS: BP 132/61
[2022-08-04 11:35] VITALS: BP 132/61
[2022-08-04 13:13] VITALS: BP 124/67
== END 2022-08-04 13:47 | disposition home or self-care (01) | DRG 140 ==
LOC: EDUNIT# 05:28 → ER 05:28 → EDBD 05:28 → TELE 14:10 → TELE-EAST 07-30 15:40 → EAST 07-31 23:52
PROVIDERS: ADMIT Nurse Practitioner Family; ATTEND Nurse Practitioner Acute Care
DX: J44.1 Chronic obstructive pulmonary disease with (acute) exacerbation (principal); J96.01 Acute respiratory failure with hypoxia; E44.1 Mild protein-calorie malnutrition; R73.9 Hyperglycemia, unspecified; E66.01 Morbid (severe) obesity due to excess calories; G89.29 Other chronic pain; Z20.822 Contact with and (suspected) exposure to COVID-19; I10 Essential (primary) hypertension; J98.11 Atelectasis; Z79.51 Long term (current) use of inhaled steroids; Z86.16 Personal history of COVID-19; Z68.32 Body mass index [BMI] 32.0-32.9, adult; Z88.2 Allergy status to sulfonamides; Z88.8 Allergy status to other drugs, medicaments and biological substances
CPT/HCPCS: 36415; 36600; 71045; 80048; 80053; 80061; 81001; 82805; 83036; 83735; 83880; 84443; 84484; 85007; 85025; 85027; 85379; 87426; 93005; 93970; 94640; 96361; 96365; 96375; 97110; 97116; 97163; 97530; C9113; G0378; J0696; J2405